=== PATIENT | female | born 1995 | race Caucasian/White ===

== ENCOUNTER → 2018-07-10 | Outpatient (REF) | payer OTHER | LOC: M SFHCLERA 20:22 | PROVIDERS: ATTEND Physician Assistant | DX: J02.9 Acute pharyngitis, unspecified (principal) ==

== ENCOUNTER 2020-09-08 09:58 | Emergency (ER) | payer OTHER ==
[~2020-09-08] VITALS: Ht 157.5 cm; Wt 72.4 kg
[2020-09-08 10:57] LABS: BASO # 0.1 10^3/uL (0.0-0.2); BASO % 0.9 % (0.0-1.0); EOS # 0.2 10^3/uL (0.0-0.5); EOS % 2.2 % (0.0-3.0); HEMATOCRIT 45.1 % (36.0-47.0); HEMOGLOBIN 14.3 g/dl (12.0-15.5); LYMPH # 2.5 10^3/uL (1.5-5.0); LYMPH % 32.9 % (24.0-44.0); MEAN CORPUSCULAR HEMOGLOBIN 28.9 pg (27.0-33.0); MEAN CORPUSCULAR HGB CONC 31.7 g/dl (32.0-36.5); MEAN CORPUSCULAR VOLUME 91.1 fl (80.0-96.0); MONO # 0.5 10^3/uL (0.0-0.8); MONO % 6.7 % (2.0-8.0); NEUTROPHILS # 4.3 10^3/uL (1.5-8.5); NEUTROPHILS % 56.9 % (36.0-66.0); PLATELET COUNT, AUTOMATED 213 10^3/uL (150-450); RED BLOOD COUNT 4.95 10^6/uL (4.00-5.40); WHITE BLOOD COUNT 7.6 10^3/uL (4.0-10.0)
[2020-09-08 11:45] LABS: BLOOD UREA NITROGEN 11 MG/DL (7-18); CALCIUM LEVEL 9.3 MG/DL (8.5-10.1); CARBON DIOXIDE LEVEL 26 MEQ/L (21-32); CHLORIDE LEVEL 108 MEQ/L (98-107); CREATININE FOR GFR 0.62 MG/DL (0.55-1.30); GLOMERULAR FILTRATION RATE > 60.0 (>60); GLUCOSE, FASTING 85 MG/DL (70-100); HCG, SERUM QUANTITATIVE 31225 MIU/ML; POTASSIUM SERUM 3.9 MEQ/L (3.5-5.1); SODIUM LEVEL 138 MEQ/L (136-145)
--- NOTE | 2020-09-08 12:43 | REP ---
INDICATION: 8-9 weeks preg with bleeding. COMPARISON: None. TECHNIQUE: Real-time sonographic evaluation of gravid uterus performed. FINDINGS: There is a single living intrauterine gestation. The estimated gestational age is 6 weeks 4 days, EDC 04/30/2021. heart rate 122 beats per minute. There is no subchorionic hemorrhage. Right ovary demonstrates a small cystic structure 1.7 cm in maximum diameter probably representing a corpus luteum. There is blood flow seen in the right ovary with duplex Doppler evaluation, with no torsion. Left ovary is not visualized. IMPRESSION: Viable intrauterine gestation as above. <Electronically signed by Dennis Walton > 09/08/20 [id number]
[2020-09-08 13:36] VITALS: BP 128/68
== END 2020-09-08 14:03 | disposition home or self-care (01) ==
LOC: M ED 09:58
DX: O34.80 Maternal care for other abnormalities of pelvic organs, unspecified trimester (principal); O20.8 Other hemorrhage in early pregnancy; Z87.59 Personal history of other complications of pregnancy, childbirth and the puerperium; Z3A.01 Less than 8 weeks gestation of pregnancy; Z88.0 Allergy status to penicillin

== ENCOUNTER → 2020-09-10 | Outpatient (CLI) | payer OTHER | LOC: M LAB 09:09 | PROVIDERS: ATTEND Physician Assistant Medical | DX: N93.9 Abnormal uterine and vaginal bleeding, unspecified (principal) ==

== ENCOUNTER 2020-11-07 10:35 | Emergency (ER) | payer OTHER ==
[~2020-11-07] VITALS: Ht 160 cm; Wt 73.1 kg
[2020-11-07 12:17] LABS: BASO % 0.4 % (0.0-1.0); EOS # 0.1 10^3/uL (0.0-0.5); EOS % 1.9 % (0.0-3.0); HEMATOCRIT 37.5 % (36.0-47.0); HEMOGLOBIN 12.3 g/dl (12.0-15.5); LYMPH # 2.2 10^3/uL (1.5-5.0); LYMPH % 29.6 % (24.0-44.0); MEAN CORPUSCULAR HEMOGLOBIN 30.7 pg (27.0-33.0); MEAN CORPUSCULAR HGB CONC 32.8 g/dl (32.0-36.5); MEAN CORPUSCULAR VOLUME 93.5 fl (80.0-96.0); MONO # 0.3 10^3/uL (0.0-0.8); MONO % 4.5 % (2.0-8.0); NEUTROPHILS # 4.7 10^3/uL (1.5-8.5); NEUTROPHILS % 63.3 % (36.0-66.0); PLATELET COUNT, AUTOMATED 196 10^3/uL (150-450); RED BLOOD COUNT 4.01 10^6/uL (4.00-5.40); WHITE BLOOD COUNT 7.4 10^3/uL (4.0-10.0)
[2020-11-07 12:49] LABS: BLOOD UREA NITROGEN 7 MG/DL (7-18); CALCIUM LEVEL 8.4 MG/DL (8.5-10.1); CARBON DIOXIDE LEVEL 23 MEQ/L (21-32); CHLORIDE LEVEL 109 MEQ/L (98-107); CREATININE FOR GFR 0.46 MG/DL (0.55-1.30); GLOMERULAR FILTRATION RATE > 60.0 (>60); GLUCOSE, FASTING 77 MG/DL (70-100); POTASSIUM SERUM 3.9 MEQ/L (3.5-5.1); SODIUM LEVEL 139 MEQ/L (136-145)
[2020-11-07 14:19] VITALS: BP 122/70
== END 2020-11-07 14:20 | disposition home or self-care (01) ==
LOC: M ED 10:35
DX: O20.8 Other hemorrhage in early pregnancy (principal); Z3A.15 15 weeks gestation of pregnancy; Z87.59 Personal history of other complications of pregnancy, childbirth and the puerperium; Z88.0 Allergy status to penicillin

== ENCOUNTER 2021-04-25 21:26 | Inpatient (IN) | payer OTHER ==
[~2021-04-25] VITALS: Ht 160 cm; Wt 86.1 kg
[2021-04-25 21:40] VITALS: BP 132/87
[2021-04-25] MEDS ORDERED: PRENTAB9 PO (21:51)
[2021-04-25] MEDS ORDERED: ACET325C5 PO (21:51)
[2021-04-25] MEDS ORDERED: HOME MED LIST COMPLETE! XX SCH (21:55)
[2021-04-25] MEDS ORDERED: OXYTOCIN DRIP 30 UNITS in IV 1 EA IV PRN (22:15)
[2021-04-25] MEDS ORDERED: LR 1,000 ML IV SCH (22:15)
[2021-04-25] MEDS ORDERED: LACTATED RINGER'S 1000 ML IV ONE (22:15)
[2021-04-25] MEDS ORDERED: OXYTOCIN INJ 10 UNITS/ML VIAL (J2590) IV PRN (22:15)
[2021-04-25 23:16] VITALS: BP 142/94
[2021-04-25 23:17] VITALS: BP 149/90
[2021-04-25 23:21] LABS: HEMATOCRIT 39.5 % (36.0-47.0); HEMOGLOBIN 12.9 g/dl (12.0-15.5); MEAN CORPUSCULAR HEMOGLOBIN 30.7 pg (27.0-33.0); MEAN CORPUSCULAR HGB CONC 32.7 g/dl (32.0-36.5); PLATELET COUNT, AUTOMATED 186 10^3/uL (150-450); WHITE BLOOD COUNT 11.9 10^3/uL (4.0-10.0)
[2021-04-26] VITALS (40 sets, daily range): BP systolic 117–189; BP diastolic 61–92
[2021-04-26] MEDS ORDERED: FENTANYL 2MCG/ML ROPIVACAINE 0.2% IN 0.9% NACL 100ML IVBAG As Ordered ONE (00:12)
--- NOTE | 2021-04-26 01:08 | IPNPDOC ---
Text Note Date of Service The patient was seen on 04/26/21. NOTE 04/26/21 0110 am assessment has epidural bulging membranes -3 station arom bloody fluid catagory 1 strip safe to proceed VS,Fishbone, I+O VS, Fishbone, I+O Laboratory Tests 04/25/21 22:58 Vital Signs Date Time Temp Pulse Resp B/P (MAP) Pulse Ox O2 Delivery O2 Flow Rate FiO2 04/26/21 00:25 96 136/92 (107) 04/25/21 23:17 17 04/25/21 21:40 98.9 I&O- Last 24 Hours up to 6 AM 04/26/21 06:00 Intake Total 1000 ml Balance 1000 ml Jason Pearl MD Apr 26, 2021 01:08
--- NOTE | 2021-04-26 01:14 | HPEPDOC ---
Obstetrical History & Physical General Date of Admission Item Value Date Time White Blood Count 11.9 10^3/uL H 04/25/212257 Red Blood Count 4.20 10^6/uL 04/25/212257 Hemoglobin 12.9 g/dl 04/25/212257 Hematocrit 39.5 % 04/25/212257 Mean Corpuscular Volume 94.0 fl 04/25/212257 Mean Corpuscular Hemoglobin 30.7 pg 04/25/212257 Mean Corpuscular Hemoglobin Concent 32.7 g/dl 04/25/212257 Red Cell Distribution Width 14.0 % 04/25/212257 Platelet Count 186 10^3/uL 04/25/212257 Vital Signs Label Value Date Time Patient Temperature 98.9 degrees F 04/25/212139 Temperature Source Temporal 04/25/212139 Pulse 107 04/25/212139 Respiratory Rate 19 bpm 04/25/212139 Blood Pressure Assessment 132/87 (102) 04/25/212139 Source Automatic Cuff (NIBP) Apr 25, 2021 at 22:12 Primary Care Physician: Jason Pearl MD History of Present Illness HAD MEMBRANES STRIPPED 24 HOURS AGO NOW BACK PAIN NO RELIEF Q 4 MINUTES NO SROM NO VAGINAL BLEEDING Chief Complaint: Contractions, term Information Provided By: Patient Age: 25 : 2 Term: 0 Pre-term: 0 Abortions: 1 Livin Care Care: Good Care Number of Visits: 10 Dating Final EDC: Apr 30, 2021 Final EDC for Daily Update: Apr 30, 2021 Final EDC by: LMP LMP: Jul 13, 2020 1st Trimester Date: September 08, 2020 Weeks + Days: 6.4 Estimated Date of Confinement: Apr 30, 2021 EGA at Admission: 39.2 Antepartum Course Diagnos(e)s ACTIVE LABOR AT TERM POST MEMBRANE STRIPPING Height (inches): 62 Pre- weight (lbs.): 160 Admission Weight (lbs.): 191 Change in Weight (lbs.): 31 Past Medical History Past Obstetrical History : Past Obstetrical History: Multigravida Date of Delivery: May 20, 2020 Gestation: 8 Complications: Yes (SPONTANOUS D AND C ) CONSULTING PSYCHIATRIST History: Spontaneous (NON VIABLE AT 6 WEEKS D AND C 10 WEEKS ) Past Medical History Medical History SULEMA SCHLATTER SYNDROME Surgical History: Gallbladder (D AND C LSC ) Family History Family History MOTHER HEART ATTACK FATHER KIDNEY STONES [employer] Social History Social history AD NO VIOLENCE Marital Status: Family situation: Spouse/partner home Psychosocial History: No pertinent psych hx * Smoker: non-smoker Alcohol: Denies Drugs: denies Abuse Violence Screening Have you been hit/kicked/slapp: No Have you been sexually assault: No Imunizations Tdap status: current Influenza Status: current Allergies Coded Allergies: Penicillins (Verified Allergy, Unknown, 04/25/21) Medications Scheduled No.137/Iron/Folic Acd ( Vitamin Tablet) 1 Each Tablet, 1 TAB PO DAILY Miscellaneous Medications Acetaminophen (Tylenol) 325 Mg Capsule, 1,000 MG PO Physical Examination Physical Examination GENERAL: Alert and oriented times three. BREAST: . ABDOMEN: Gravid and non-tender to touch. FETUS: Is vertex (VTX) by sterile vaginal examination (SVE), fetus is vertex (VTX) by Guille. 3 CM 70% EFFACED -3 STATION BULGING MEMBRANES SHOW SOFT ANTERIOR HEART RATE: Regular rate and rhythm. LUNGS: Clear to auscultation (CTA). EXTREMITIES: No edema. No clonus. Deep tendon reflexes (DTRs) + . Other physical findings NORMOCEPHALIC NECK NORMAL MOTION PERRLA HEART RHYTHM NORMAL, NO MURMUR NO CLICKS RUMS CHEST CLEAR TO BASES NO RALES NO RHONCHI NO SOB, NO RASHES LESIONS PLEURITIS NO ARTHRALGIA, MYALGIA ABDOMEN SOFT APPROPRIATE SF HEIGHT NO N/V/D/C/F. NO URGENCY FREQUENCY Vital Signs/I&O Vital Signs Date Time Temp Pulse Resp B/P (MAP) Pulse Ox O2 Delivery O2 Flow Rate FiO2 04/25/21 21:40 98.9 107 19 132/87 (102) Laboratory Data 24H LABS Laboratory Tests 2 04/25/21 22:15: Serology Scanned Report Hepatitis B Testing Pertinent Laboratoy Data Blood Type: A+ RBC Antibody Screen: Negative HIV: Negative Hepatitis B: Negative Rapid Plasma Reagin: Nonreactive Rubella: Immune Varicella: Immune Chlamydia/Gonorrhea: Negative Group B Streptococcus: Negative Quad Screen Test: Unknown Cystic Fibrosis: Negative Glucose Tolerance Test: 145 (3 HR GTT 77/163/131/95) Anatomy Ultrasound Ultrasound Date: Oct 18, 2020 Placenta Location: Posterior (SUB CHORIONIC HEMORRHAGE ) Normal Anatomy: Yes Estimated Weight (grams): 342 Steroid Therapy Steroid Therapy: No Vaginal Examination Dilation: 3 cm Effacement: 70% Station: -3 Cervical Consistency: Soft Cervical Position: Middle Presentation: Cephalic presentation Position: Vertex (occiput) Assessment Variability: Moderate Accelerations: Positive Decelerations: None Tocometer Contractions: Yes Frequency: every 1-3 min. Strength: palpated as moderate (SHOW ) Assessment/Plan Assessment 25-year-old (G)2 para (P0 at 39.2 weeks by 6.4-week ultrasound. Presents to Labor and Delivery (L&D) .AFTER MEMBRANE STRIPPING 24 HOURS AGO AND PERSISTENT BACK PAIN NO RELIEF Plan Admit and orient. Cash Grain Grower and consent. Diet: NPO Group B Streptococcus (GBS) [negative]. Labs and intravenous (IV) per unit protocol. Counseled on Pitocin and induction of labor (IOL).AROM AND POSSIBLE AUGMENTATION Lactated Ringers (LR): Bolus 1000 mL, then at 125 mL/hr. Anticipate [normal spontaneous delivery ()]. C-S as appropriate. Labor and Delivery Counseling REVIEWED VAGINAL DELIVERY WITH POSSIBLE USE FORCEPS OR VACUUM FOR OR MATERNAL INDICATIONS WHERE IMMINENT DELIVERY IS NECESSARY. NEED FOR EPISIOTOMY TO ALLOW MORE ROOM FOR DELIVERY MAY REQUIRE REPAIR LACERATIONS OR TEARS TO PELVIC ORGANS. POSSIBLE NEED FOR CS DELIVERY MAY BE NECESSARY AND IMMINENT DELIVERY NOT HAPPENING. RISK CS HEMORRHAGE INFECTION PERFORATION REMOTE BLOOD TRANSFUSION, REMOTE HYSTERECTOMY FOR LIFE THREATENING BLEEDING. ALSO UTERINE ASYSTOLE RUPTURE POSSIBLE. REMOTE POSSIBILITY OF INFANT ADMITTED TO NICU. EXPRESSED UNDERSTANDING. PATIENT EXHAUSTED WILL ADMIT HYDRATE EPIDURAL NEEDED AUGMENT LABOR NEEDED Jason Pearl MD Apr 25, 2021 23:06
[2021-04-26] MEDS ORDERED: NALOXONE INJ 0.4MG/1ML VIAL (J2310 PER 1MG) IV PRN (02:00)
[2021-04-26] MEDS ORDERED: FENTANYL/ROPIVACAINE/NACL BAG 100 ML EPIDURAL SCH (02:00)
[2021-04-26] MEDS ORDERED: diphenhydrAMINE 50MG/ML VIAL (J1200) IV PRN (02:00)
[2021-04-26] MEDS ORDERED: REFRIGERATOR IV KEYS XX PRN (02:00)
[2021-04-26] MEDS ORDERED: EPIDURAL COMMENT XX SCH (02:00)
[2021-04-26] MEDS ORDERED: EPIDURAL/PCA KEYS XX PRN (02:00)
[2021-04-26] MEDS ORDERED: ONDANSETRON 4MG/2ML VIAL IV PRN (02:00)
[2021-04-26] MEDS ORDERED: LACTATED RINGER'S 1000 ML IV PRN (02:00)
[2021-04-26] MEDS ORDERED: ePHEDrine SULFATE 25 MG/5 ML(5MG/ML) SYRINGE IV PRN (02:00)
[2021-04-26] MEDS ORDERED: OXYTOCIN DRIP 30 UNITS in IV 1 EA IV SCH ×2 (04:00→06:40)
[2021-04-26] MEDS ORDERED: FIORICET TAB PO ONE (04:20)
[2021-04-26 06:17] LABS: CORD GAS ABE V -3.5; CORD GAS HCO3 V 20.2 MEQ/L; CORD GAS O2 SAT V 90.4 %; CORD GAS PCO2 V 33.4 mmHg; CORD GAS PH V 7.4 UNITS; CORD GAS PO2 V 42.7 mmHg; CORD GAS SBC V 21.4 MEQ/L; CORD GAS TCO2 V 21.3 MEQ/L
[2021-04-26 06:20] LABS: CORD GAS ABE A -4.5; CORD GAS HCO3 A 19.1 MEQ/L; CORD GAS PCO2 A 31.9 mmHg; CORD GAS PH A 7.395 UNITS; CORD GAS PO2 A 41.1 mmHg; CORD GAS SBC A 20.6 MEQ/L; CORD GAS TCO2 A 20.1 MEQ/L
[2021-04-26] MEDS ORDERED: METHYLERGONOVINE MALEATE 0.2 MG/ML VIAL (J2210) IM PRN (06:40)
[2021-04-26] MEDS ORDERED: DOCUSATE SODIUM 100MG CAPSULE PO PRN (06:40)
[2021-04-26] MEDS ORDERED: DIBUCAINE 1% OINTMENT 30GM TOP PRN (06:40)
[2021-04-26] MEDS ORDERED: ANUSOL HC CREAM 30GM TOP PRN (06:40)
[2021-04-26] MEDS ORDERED: ACETAMINOPHEN 500 MG TAB PO PRN (06:40)
[2021-04-26] MEDS ORDERED: MOM 30ML SUSPENSION UDC PO PRN (06:40)
[2021-04-26] MEDS ORDERED: METHYLERGONOVINE MALEATE 0.2 MG TAB PO PRN (06:40)
[2021-04-26] MEDS: LR 1,000 ML IV SCH ×2 (06:40→14:40)
[2021-04-26] MEDS ORDERED: OXYTOCIN INJ 10 UNITS/ML VIAL (J2590) IV ONE (06:40)
[2021-04-26] MEDS ORDERED: ACETAMINOPHEN TAB 650MG DOSE (2X325MG) PO PRN (06:40)
[2021-04-26] MEDS ORDERED: MEASLES,MUMPS,RUBELLA VACCINE INJ (MMR-II) (90707) SC SCH (06:40)
[2021-04-26] MEDS ORDERED: OXYTOCIN DRIP 30 UNITS in IV 1 EA IV ONE (06:40)
[2021-04-26] MEDS ORDERED: RHOGAM 300 MCG (1500 IU) INJ (J2790) IM SCH (06:40)
[2021-04-26] MEDS: PRENATAL VITAMINS CHEWABLE TABLET PO SCH (09:00)
--- NOTE | 2021-04-26 13:16 | DN ---
DELIVERY NOTE DATE OF DELIVERY: 04/26/2021 TIME OF : This patient is a 20-year-old 2 admitted in active labor after having membrane stripping 24 hours ago. She had an epidural in place. Spontaneous vaginal delivery of a male , 7 pounds 11 ounces, 3490 grams. Apgars of 9 and 9 at one and five minutes respectively. Arterial pH 7.39, base excess -4.5. Venous pH 7.40, base excess -3.5. Placenta was delayed by 20 minutes but did spontaneously deliver, three vessels in the cord, membranes and tissues intact. The uterus contracted well down on Pitocin. Examination of the perineum was intact. Sphincter was tight. The anterior, posterior, and lateral pike were complete. She had a small pumping blood vessel in the fourchette area which was oversewn with 2-0 Vicryl on a [id number]. Again, the uterus contracted well down. The patient and baby tolerated procedure well. Estimated blood loss 150 mL. cc: Felipa BENTLEY M.D.
[2021-04-27] MEDS ORDERED: PROCTOFOAM-HC 1% FOAM 10 GM CAN PR PRN (05:25)
--- NOTE | 2021-04-27 05:29 | IPNPDOC ---
Progress Note Date of Service: Apr 27, 2021 Progress Note 26 yo G2 now P1 PPD#1 s/p uncomplicated yesterday after being admitted for active labor. No acute events overnight. This morning Amy reports feeling well overall. She has some perineal discomfort but otherwise no complaints. She is ambulating, voiding without difficulty, and tolerating a regular diet. Lochia has been minimal. Pain is well controlled. Vitals - VSS, afebrile, normotensive, non tachycardic General - AAOX3, laying in bed, pleasant and conversant, NAD Abdomen - Soft, nondistended. Fundus firm at U-2. No fundal tenderness. Extremities - trace edema UO - appropriate Amy is doing well and is making an appropriate recovery. No issues. Continue routine care. Anticipate DC home tomorrow. All questions answered. Luis VS, I&O, 24H, Susie Vital Signs/I&O Vital Signs Date Time Temp Pulse Resp B/P (MAP) Pulse Ox O2 Delivery O2 Flow Rate FiO2 04/26/21 18:08 99.0 100 16 139/78 (98) 04/26/21 09:20 97 Room Air I&O- Last 24 Hours up to 6 AM 04/27/21 06:00 Intake Total 831.5 ml Output Total 150 ml Balance 681.5 ml Laboratory Data 24H LABS Laboratory Tests 2 04/26/21 05:59: Cord Venous Blood pH 7.400, Cord Venous Blood PCO2 33.4, Cord Venous Blood PO2 42.7, Cord Venous Blood HCO3 20.2, Cord Venous Blood Total CO2 21.3, Cord Venous Base Excess (Actual) -3.5, Cord Venous Base Excess (Standard) 21.4, Cord Venous Blood Oxygen Saturation 90.4 04/26/21 06:00: Cord Arterial Blood pH 7.395, Cord Arterial Blood PCO2 31.9, Cord Arterial Blood PO2 41.1, Cord Arterial Blood HCO3 19.1, Cord Arterial Blood Total CO2 20.1, Cord Arterial Blood Base Excess -4.5, Cord Arterial Base Excess (Standard 20.6, Cord Arterial Bld Oxygen Saturation 89.0 ANIVAL SIGALA DO Apr 27, 2021 05:29
[2021-04-27 06:36] VITALS: BP 131/82
[2021-04-27] MEDS: PRENATAL VITAMINS CHEWABLE TABLET PO SCH (07:55)
[2021-04-27] MEDS: IBUPROFEN 600MG TAB PO PRN (08:02)
[2021-04-27 08:08] LABS: HEMATOCRIT 33.5 % (36.0-47.0); HEMOGLOBIN 11.1 g/dl (12.0-15.5); MEAN CORPUSCULAR HEMOGLOBIN 31.3 pg (27.0-33.0); MEAN CORPUSCULAR HGB CONC 33.1 g/dl (32.0-36.5); MEAN CORPUSCULAR VOLUME 94.4 fl (80.0-96.0); PLATELET COUNT, AUTOMATED 168 10^3/uL (150-450); RED BLOOD COUNT 3.55 10^6/uL (4.00-5.40); WHITE BLOOD COUNT 11.5 10^3/uL (4.0-10.0)
[2021-04-27 17:56] VITALS: BP 32/80
[2021-04-28] MEDS: IBUPROFEN 600MG TAB PO PRN (00:50)
[2021-04-28] MEDS ORDERED: IBUP-1022 PO (05:35)
[2021-04-28] MEDS ORDERED: ACET1TAB55 PO (05:35)
[2021-04-28] MEDS ORDERED: COLA100C5 PO (05:35)
[2021-04-28 05:46] VITALS: BP 126/82
--- NOTE | 2021-04-28 05:47 | OBDS ---
[facility] Obstetrical Discharge Sum. Obstetrical Discharge Summary Computer Education Professor/Provider: ETHAN BURRIS DO Date: Apr 28, 2021 Time: 05:29 : 2 Term: 1 Pre-term: 0 Abortions: 1 Livin VDRL: Non-Reactive Rh: Positive Rubella: Immune Labor uncomplicated Delivery normal spontaneous vaginal delivery Sex: Male Weight: pounds (7), ounces (11) Anesthesia: Regional Anesthesia A/P, Post Course List any complications Admission diagnosis: labor at term. Discharge diagnosis: status post normal spontaneous vaginal delivery Condition at Discharge: good Discharge Instructions: Home Activity: vaginal rest Diet: resume prehospital Medications: picked up at [place] Follow-up: 6 weeks [facility] Other: Day of discharge exam a&o x3 nad nonlabored breathing abd soft, nontender, nondistended uterus firm at u-2 negative calf tenderness bilaterally ETHAN BURRIS DO Apr 28, 2021 05:33
[2021-04-28] MEDS: PRENATAL VITAMINS CHEWABLE TABLET PO SCH (08:55)
--- NOTE | 2021-04-29 12:14 | IPN ---
PROGRESS NOTE DATE: 04/26/2021 This lady requested circumcision of her male after discussing risks and benefits of circumcision, the medical and the nonmedical indications, the penile block, and aftercare. Expressed understanding of penile block, aftercare, and bleeding. Signed the consent form. All questions were answered. A 20 minute discussion. We await the clearance by the etl developer.
== END 2021-04-28 18:30 | disposition home or self-care (01) | DRG 807 ==
LOC: M LDO 21:26 → M LDI 22:12 → M OBS 04-26 09:16
PROVIDERS: ADMIT Obstetrics & Gynecology; ATTEND Obstetrics & Gynecology
PROC: 10E0XZZ Delivery of Products of Conception, External Approach (ICD-10-PCS; principal; 2021-04-26)
DX: O80 Encounter for full-term uncomplicated delivery (principal); Z37.0 Single live birth; Z3A.39 39 weeks gestation of pregnancy